=== PATIENT | male | born 1950 | race Caucasian/White ===

== ENCOUNTER 2016-11-05 16:24 | Inpatient (IN) | payer MEDICARE ==
[~2016-11-05] VITALS: Ht 170.2 cm; Wt 81.2 kg
[~2016-11-05 16:24] MED LIST: ALPR0.25 PO; AMBI10TA PO; CYCL1TAB29 PO; DULO1CAP3 PO; LOSA100T PO; METO25TA3 PO; NEUR300C PO
[2016-11-09] MEDS ORDERED: EMPA1TAB PO (09:03)
[2016-11-09] MEDS ORDERED: TRAD5TAB PO (09:03)
[2016-11-10 07:00] VITALS: BP 118/80; PULSE 93; RESP 20; TEMP 98.2; O2SAT 99
[2016-11-10] MEDS ORDERED: SODIUM CHLORID 0.9% 500 ML IV SCH (07:00)
[2016-11-10] MEDS ORDERED: LACTATED RINGER'S 1000 ML IV SCH (07:00)
[2016-11-10] MEDS ORDERED: METOPROLOL TARTRATE 25 MG TAB PO PRN (07:00)
[2016-11-10] MEDS ORDERED: INSULIN HUMAN REGULAR 1,000 UNITS/10 ML VIAL SQ PRN (07:00)
[2016-11-10] MEDS ORDERED: VANCOMYCIN HCL 1000 MG VIAL ONE (07:14)
[2016-11-10] MEDS ORDERED: GENTAMICIN SULFATE 80 MG/2 ML VIAL ONE (07:15)
[2016-11-10] MEDS ORDERED: GELFOAM SIZE 100 ONE (07:15)
[2016-11-10] MEDS ORDERED: ceFAZolin 2 GM PREMIX 50 ML ONE (07:15)
[2016-11-10] MEDS ORDERED: THROMBIN (TOPICAL) 5,000 UNIT VIAL ONE (07:15)
[2016-11-10] MEDS ORDERED: SODIUM CHLOR 0.9% 250 ML INJ 250 ML ONE (07:16)
[2016-11-10] MEDS ORDERED: HEPARIN SODIUM - SQ 10,000 UNITS/ML VIAL ONE (07:16)
[2016-11-10] MEDS ORDERED: ARTIFICIAL TEARS OPTH OINT 3.5 APPLIC/3.5 GM TUBO ONE (08:11)
[2016-11-10] MEDS ORDERED: MIDAZOLAM HCL 2 MG/2 ML VIAL ONE (08:11)
[2016-11-10] MEDS ORDERED: FAMOTIDINE 20 MG/2 ML VIAL ONE (08:11)
[2016-11-10] MEDS ORDERED: ACETAMINOPHEN 1000 MG/100 ML VIAL IV ONE (08:11)
[2016-11-10] MEDS ORDERED: fentaNYL CITRATE 250 MCG/5 ML AMP ONE ×2 (08:12→14:05)
[2016-11-10] MEDS ORDERED: SODIUM CHLORIDE 0.9% FLUSH 5 ML FLUSH IVF PRN (09:30)
[2016-11-10] MEDS ORDERED: MORPHINE SULFATE 4 MG/ML INJ IV PUSH PRN (09:30)
[2016-11-10] MEDS ORDERED: diphenhydrAMINE HCL 50 MG/ML VIAL IV PRN (09:45)
[2016-11-10] MEDS ORDERED: NALOXONE HCL 0.4 MG/ML AMP IV PRN (09:45)
[2016-11-10] MEDS ORDERED: LACTATED RINGER'S 1000 ML INJ 1,000 ML IV ONE (11:14)
[2016-11-10] MEDS ORDERED: ONDANSETRON HCL 4 MG/2 ML VIAL IV PUSH ONE (11:14)
[2016-11-10] MEDS ORDERED: PHENYLEPH/NS 1000 MCG/10 ML SYR IV ONE (11:14)
[2016-11-10] MEDS ORDERED: PROPOFOL 200 MG/20 ML AMP IV ONE (11:14)
[2016-11-10] MEDS ORDERED: ePHEDrine/NS 25 MG/5 ML SYR IV ONE (11:14)
[2016-11-10] MEDS ORDERED: NEOSTIGMINE 3 MG/3 ML SYR IV ONE (12:00)
[2016-11-10] MEDS ORDERED: BUPIVACAINE/EPINEPHRINE 0.5% PF 30 ML VIAL ONE (12:48)
[2016-11-10] MEDS: CYCLOBENZAPRINE HCL 10 MG TAB PO SCH ×2 (13:00→18:00)
--- NOTE | 2016-11-10 13:41 | PD.CONS ---
HPI Service [facility] Hospitalists Consult Requested By Primary Care Physician Eddi Bonds M.D. Diagnoses: Review of Systems Other lbp Past Family Social History Past Medical History htn dm 2 depression anxiety. mixed CTD afib appe prostate ca s/p radiation. Reported Medications Jardiance (Empagliflozin) 10 Mg Tab 10 Mg PO DAILY Tradjenta (Linagliptin) 5 Mg Tab 5 Mg PO DAILY Neurontin (Gabapentin) 300 Mg Cap 300 Mg PO BID Alprazolam 0.25 Mg Tab 0.25 Mg PO Q6H PRN Flexeril (Cyclobenzaprine HCl) 10 Mg Tab 10 Mg PO TID Metoprolol Tartrate 25 Mg Tab 25 Mg PO DAILY Losartan (Losartan Potassium) 100 Mg Tab 100 Mg PO DAILY Duloxetine DR (Duloxetine HCl) 60 Mg Capdr 60 Mg PO DAILY Ambien (Zolpidem Tartrate) 10 Mg Tab 10 Mg PO HS PRN Allergies: Coded Allergies: Demerol (Verified Allergy, Severe, Nausea/Vomiting, 11/09/16) Phenergan (Verified Allergy, Severe, Nausea/Vomiting, 11/09/16) Levaquin (Verified Allergy, Intermediate, 11/09/16) Hydrocodone (Verified Adverse Reaction, Severe, Nausea/Vomiting, 11/09/16) Family History nc Physical Exam Vital Signs heent neg heart reg lung cta abd s/nt ext no edema Vital Signs Date Time Temp Pulse Resp B/P Pulse Ox O2 Delivery O2 Flow Rate FiO2 11/10/16 07:00 98.2 93 20 118/80 99 Laboratory Laboratory Tests Test 11/10/16 06:55 Blood Type O POSITIVE Antibody Screen NEGATIVE Roamin Wen MD Nov 10, 2016 13:41
[2016-11-10] MEDS: NS + KCL 20 MEQ INJ 1,000 ML IV SCH ×2 (13:50→21:17)
[2016-11-10] MEDS ORDERED: *LABETALOL HCL 100 MG/20 ML VIAL PERIprocedural Use ONLY ONE (13:55)
[2016-11-10] MEDS ORDERED: DEXTROSE 50% IN WATER 50 ML VIAL(D50) IV PUSH PRN (14:00)
[2016-11-10] MEDS ORDERED: GLUCAGON 1 MG/ML VIAL OTHER PRN (14:00)
[2016-11-10] MEDS: PCA - TOTAL MG DILAUDID DELIVERED PER SHIFT SCH ×2 (14:00→21:18)
--- NOTE | 2016-11-10 14:11 | RADRPT ---
EXAM DATE/TIME: 11/10/2016 09:23 [place] COMPARISON: No previous studies available for comparison. INDICATIONS : Fusion L3,L4 and L4,L5 with screws and rods placement., MEDICAL HISTORY : None. SURGICAL HISTORY : None. ENCOUNTER: Initial ACUITY: 1 day PAIN SCORE: Non-responsive. LOCATION: Lumbar spine. CONCLUSION: Fluoroscopic images during placement of compression screws/rods from L3-L5. Intervertebral disc devic es are also noted. Harjinder Tim MD on November 10, 2016 at 14:08 Board Certified Radiologist. This report was verified electronically.
[2016-11-10] MEDS ORDERED: *ENALAPRILAT 1.25 MG/ML VIAL PERIprocedural Use ONLY ONE (14:34)
[2016-11-10] MEDS: HYDROmorphone HCL PCA 6 MG/30 ML IV SCH (14:41)
--- NOTE | 2016-11-10 15:07 | PD.OP ---
Operative Report Date of Surgery: Nov 10, 2016 Preoperative Diagnosis: lumbar spondylosis Postoperative Diagnosis: lumbar spondylosis Procedure: L3-4, L4-L5 laminectomy, interbody arthrodhesis using PEEK cage and autologous bone graft, L3-4, L4-L5 instrumental fixation using transpedicular screws and rods, L3-4, L4-L5 posterolateral fusion using autologous bone graft and demineralized bone matrix. Microsurgical dissection Anesthesia: general Surgeon: Mohan Campbell Territory Sales Consultant(s): pattie weir Operation and Findings: INDICATIONS FOR THE SURGICAL PROCEDURE Mr Boland is a 66 year-old male who presented with intractable mechanical back pain and adriana evidence of L4 and L5 lower extremity radiculopathy. He failed maximum nonsurgical management including multiple modalities of conservative treatment as well as pain management interventions by an interventional pain specialist. A surgical decompression and arthrodhesis were indicated as a last resort. The [id number] details of the procedure, indications, alternatives, risks and potential complications were fully discussed with the patient. The patient fully understood. All the questions were answered. No guarantees were given. He voiced requesting the procedure and provided informed consents. He was offered the alternative of delaying the procedure and continuing with nonsurgical management. DETAILS OF THE SURGICAL PROCEDURE Prior to the procedure, the procedure, risks, and potential complications revisited with the patient. Placement of electrodes for intraoperative neurophysiological monitoring was completed. The patient was taken to the operative room, and following induction of general anesthesia, endotracheal intubation was performed. A Mcneil catheter, bilateral YADIRA hose and sequential compression devices were placed and kept throughout the procedure. The patient was positioned prone, over a Jewel table over a bolsters. All pressure in the preoperative surgical holding room points were carefully padded with eggcrate and gel mattress. The eyes were tapped shut after ointment was applied by the anesthesiologist to prevent corneal abrasion. A Demond hugger was placed over the expossed lower body to maintain control of the core body temperature. The electrophysiological team placed the needles and electrodes in their proper location and baseline SSEP's and motor evoked potentials were registered. The entrance to each pedicles was marked using a C arm. The lumbar region was prepped and draped in the usual sterile fashion. The surgical procedure was performed in several steps as follow: SURGICAL APPROACH Once the patient was positioned, a localizing cross-table lateral and AP x-ray was performed with a C-arm. Two paramedian small incisions were outlined on the skin approximately 3cm from the midline. The skin incisions were made with a # 10 blade. Small bleeders were controlled with the cautery. The dissection was then carried out into deeper planes and through the thoracolumbar fascia with a Bovie. The intermuscular septum was identified and the muscles were blunted dissected along the septum. The facets and transverse process of L3-4, L4,5 were exposed and the proper anatomical landmarks were identidied. A microsurgical self-retaining retractor was placed on the incision, and a localizing lateralizing cross-table x-ray was performed with an instrument underneath a lamina of the lumbar spine. INSTRUMENTAL FIXATION At this point in the procedure, placement of bilateral transpedicular screws was necessary for stabilization of the spine. Initially, the entry point for the screw was selected anatomically at the junction of the facet, with the transverse process, and the pars interarticularis at L3-4, L4,5. This was started with a Giamshetti needle, followed by the use of K wire. A tap was used to create the threads for the screws. Finally bilateral transpedicular screws were carefully placed bilaterally at L3, L4, and L5 under fluoroscopic visualization. An appropriate purchase was achieved with all screws. The position of each screw was assessed anatomically with an AP, lateral, oblique Xrays. An intraoperative scan view of the spine was then performed using the iso -centric c- arm. Each screw was then assessed electrophysiologically stimulating each screw with a nerve stimulator. SURGICAL DECOMPRESSION There was significant mass effect with compression of the neural structures. In order to relieve neural compression, it was necessary to perform a decompressive laminectomy, with decompression of the spinal canal and bilateral lateral recesses. Note that the scope of such decompression was significantly more extensive than the minimal exposure necessary to perform an interbody fusion, as there was extreme facet arthropathy with severe degeneration of the disk spaces and stenosis cause by the hyperthrophic joint facets. At this point of the procedure the operative microscope was draped in the usual sterile fashion and brought to the field. The rest of the surgical procedure was performed using microdissection technique with the exception of the closure. Under the operating microscope, a decompressive laminectomy was carried out at L3-4, L4,5 as follow: The laminae, base of the spinous processes and facets were carefully drilled exposing the ligamentum flavum. The facets were abnormal with a wide disk bulge pressing the neural structures and exiting nerve roots. A near complete facetectomy was necessary resulting mechanical instability. The ligamentum flavum appeared hypertrophic, resulting on mass effect on the dorsal surface of the neural structures. The superior free border of the ligamentum flavum was elevated with a ligament dissector and the ligamentum flavum was removed with a 3 and 4 mm Kerrison forceps. The ligament was very adherent to the dural sac and during the dissection, ans extreme care was taken during the dissection. The exiting nerve roots were identified, and a wide foraminotomy was performed with a Kerrison in their trajectory towards the neural foramen. Epidural veins located laterally to the dural sac were coagulated with the bipolar cautery, and then incised using microscissors. Gentle medial retraction of the dural sac allowed me to expose the disc space for the discectomy. There was severe loss of disk space height INTERBODY ARTHRODHESIS In order to correct the narrowing of the disk space and maintain distraction of the space, and to achieve a solid interbody fusion, it was necessary the insertion of an interbody device into the disk space. Otherwise, the disk space would collapse, compromising the result of the surgical procedure. At this point of the procedure, the annulus fibrosus of the disk was carefully coagulated with a bipolar cautery and incised using an 11 bladed knife. Then, a microdiscectomy was carried out in a standard fashion using a combination of straight and up-biting pituitary forceps. A reverse angle curette was applied underneath the posterior longitudinal ligament, and used to push the disk fragments into the disk space, so they can be safely removed with a pituitary forceps. Once the discectomy was completed, it was necessary to decorticate the endplates, in order to eliminate the cartilaginous endplate and to expose healthy bone appropriate to perform the interbody fusion. The endplates at L3-4 , L4,5 were then thoroughly decorticated using increasing size bone negra and ring curets, eliminating the cartilaginous fragments from both, the superior and inferior endplates. A disk space distractor was applied to the pedicle screws and gentle distraction was applied. This maneuver was assisted by the use of a disk distractor. Increased motility was noted at the disk, which was consistent with instability due to facet arthropathy. Once a thorough preparation of the disk space was achieved, the disk space was irrigated with antibiotic solution, and the interbody fusion was performed by carefully impacting PPEK cages filled with autologous iliac crest bone graft. The use of several shoe impactors with different angulation, allowed me for an excellent, proper position of the interbody cages L3-4 and L4,5. A solid position of the cage with good purchase was achieved. The position of the cages were assessed anatomically with a probe and radiologically with the C-arm. POSTEROLATERAL FUSION The posterolateral fusion is a critical component to the procedure, to prevent future fatigue and failure of the instrumental fixation. Initially, the transverse processes of the vertebral bodies, lateral surface of the facets and the lateral gutters of the spine were carefully cleaned, eliminating all soft tissue and muscle attachments. The area was then irrigated with a large amount of antibiotic solution. Subsequently, the transverse processes, lateral surface of the facets, and lateral gutters of the spine were thoroughly decorticated using the TPS drill with a 5mm cutting luana, exposing cancellous bone, in preparation for the posterolateral fusion. The incision was again irrigated with antibiotic solution. Then, the posterolateral fusion was then performed by carefully packing the lateral gutters of the spine at L3-4, L4 ,5 with autologous bone graft combined with demineralized bone matrix. I packed as much bone as possible. COMPLETION OF THE INSTRUMENTATION AND CLOSURE The rods were brought to the field, applied to all the screws, and the screw caps were sequentially applied. Compression was performed between the pedicle screws, and final tightening of the screws was completed using a torque wrench. The incision was again thoroughly irrigated with several liters of antibiotic solution, and hemostasis secured with the bipolar cautery. A Valsalva Maneuver performed by the anesthesiologist failed to show any evidence of cerebrospinal fluid leak or bleeding. A 7 mm Jewel-Iverson drain was left in the epidural space and externalized through a separate stab incision. The incision was then closed in planes. 0 Vicryl was used in an interrupted fashion to close the thoracolumbar fascia and the superficial fascia. The subcutaneous tissue was then approximated using 3-0 Vicryl in an interrupted fashion. Special care was taken to avoid space. The skin was then closed with 4-0 Vicryl in a running, subcuticular fashion. Dermabond was applied to the skin. Each plane of closure was irrigated with antibiotic solution. At the end of the procedure the sponge, needle and instrument counts were all correct. Estimated blood loss was 250 cc. No blood transfusion was given. The entire procedure was performed using continuous electrophysiological monitoring of the somatosensorial evoked potentials and EMG. The patient received prophylactic antibiotics. The patient was then extubated and transferred to the recovery room in stable condition. Mohan Campbell MD Nov 10, 2016 15:07
[2016-11-10 16:00] VITALS: BP 135/82; PULSE 115; RESP 19; TEMP 95.9; O2SAT 95
[2016-11-10] MEDS: INSULIN ASPART SUPPLEMENTAL SCALE SQ SCH ×2 (16:00→21:18)
[2016-11-10] MEDS ORDERED: INSULIN ASPART SUPPLEMENTAL SCALE SQ SCH (16:00)
[2016-11-10] MEDS: ceFAZolin 2 GM PREMIX 50 ML IV SCH (18:00)
[2016-11-10] MEDS ORDERED: ceFAZolin 2 GM PREMIX 50 ML IV SCH (18:00)
[2016-11-10 20:30] VITALS: BP 160/95; PULSE 113; RESP 18; TEMP 96.6; O2SAT 97
[2016-11-10] MEDS: GABAPENTIN 300 MG CAP PO SCH (21:17)
[2016-11-11] VITALS (7 sets, daily range): BP systolic 131–160; BP diastolic 76–95; PULSE 98–117; RESP 16–18; TEMP 97–98.4; O2SAT 92–99
[2016-11-11] MEDS: ceFAZolin 2 GM PREMIX 50 ML IV SCH ×2 (02:26→08:59)
[2016-11-11] MEDS: PCA - TOTAL MG DILAUDID DELIVERED PER SHIFT SCH ×3 (06:00→21:43)
[2016-11-11] MEDS: INSULIN ASPART SUPPLEMENTAL SCALE SQ SCH ×4 (06:11→21:40)
[2016-11-11 07:22] LABS: BICARBONATE 25.4 MEQ/L (21.0-32.0); POTASSIUM 3.9 MEQ/L (3.5-5.1)
[2016-11-11 07:42] LABS: BASOPHIL % 0.4 % (0.0-2.0); HEMATOCRIT 29.6 % (39.0-51.0); HEMO FLAGS DIFF FINAL; LYMPH % 19.5 % (9.0-44.0); LYMPHOCYTE # 1.1 TH/MM3 (1.0-4.8); MEAN CELL VOLUME 87.4 FL (80.0-100.0); MEAN CORPUSCULAR HEMOGLOBIN 29.3 PG (27.0-34.0); MEAN CORPUSCULAR HGB CONC 33.6 % (32.0-36.0); MONO % 11.1 % (0.0-8.0); PLATELET COUNT 180 TH/MM3 (150-450); RED BLOOD COUNT 3.39 MIL/MM3 (4.50-5.90); RED CELL DISTRIBUTION WIDTH 18.6 % (11.6-17.2); WHITE BLOOD COUNT 5.8 TH/MM3 (4.0-11.0)
[2016-11-11] MEDS: GABAPENTIN 300 MG CAP PO SCH ×2 (08:55→21:43)
[2016-11-11] MEDS: METOPROLOL TARTRATE 25 MG TAB PO SCH (08:55)
[2016-11-11] MEDS: CYCLOBENZAPRINE HCL 10 MG TAB PO SCH ×3 (08:55→18:34)
[2016-11-11] MEDS: DULoxetine HCl DR 60 MG CAP PO SCH (08:56)
[2016-11-11] MEDS: LOSARTAN 50 MG TAB PO SCH (08:56)
[2016-11-11] MEDS: PANTOPRAZOLE SODIUM 40 MG VIAL IVP SCH (08:58)
[2016-11-11] MEDS: SODIUM CHLORIDE 0.9% FLUSH 5 ML FLUSH IVF SCH ×2 (08:59→21:43)
[2016-11-11] MEDS: NS + KCL 20 MEQ INJ 1,000 ML IV SCH (08:59)
[2016-11-11] MEDS ORDERED: TRADJENTA 5 MG PO SCH (09:00)
[2016-11-11] MEDS ORDERED: JARDIANCE 10 MG PO SCH (09:00)
--- NOTE | 2016-11-11 10:00 | HHI.PR ---
Subjective Remarks comfortable. used performance specialist x 2 Objective Vitals heent neg heart reg lung cta abd s/nt ext no edema jack Vital Signs Date Time Temp Pulse Resp B/P Pulse Ox O2 Delivery O2 Flow Rate FiO2 11/11/16 08:39 93 11/11/16 08:04 98.3 112 16 140/84 92 11/11/16 07:07 Nasal Cannula 2.00 11/11/16 03:45 97.0 106 18 149/85 96 11/11/16 00:15 97.6 108 18 131/76 95 11/10/16 20:30 96.6 113 18 160/95 97 11/10/16 19:30 Nasal Cannula 2.00 11/10/16 16:00 95.9 115 19 135/82 95 11/10/16 15:00 110 14 122/79 97 Nasal Cannula 3 11/10/16 14:45 107 14 119/76 96 Nasal Cannula 3 11/10/16 14:41 14 11/10/16 14:30 105 14 147/94 95 Nasal Cannula 3 11/10/16 14:15 117 14 156/101 97 Nasal Cannula 4 11/10/16 14:00 110 14 144/83 99 Nasal Cannula 4 11/10/16 13:48 97.6 117 14 146/103 99 T-Piece 6 11/10/16 11/10/16 11/11/16 15:00 23:00 07:00 Intake Total 3200 ml 2180 ml 1192 ml Output Total 510 ml 1205 ml 1585 ml Balance 2690 ml 975 ml -393 ml Intake Oral 480 ml 480 ml IV Total 1700 ml 712 ml Other 3200 ml Output Urine Total 1150 ml 1550 ml Drainage Total 10 ml 55 ml 35 ml Estimated Blood Loss 250 ml Other 250 ml # Bowel Movements 0 0 Result Diagram: 11/11/16 0630 11/11/16 0630 A/P Problem List: (1) Lumbar spondylosis Status: Acute Plan: s/p l4/5 lami/fusion 11/10 doing well postop PT dc jack dvt prophylaxis pain control. (2) DM (diabetes mellitus) Status: Chronic Plan: cont ssi hold home meds (3) HTN (hypertension) Status: Chronic Plan: cont home bp meds Romain Wen MD Nov 11, 2016 09:59
--- NOTE | 2016-11-11 10:20 | HHI.NSPN ---
(Mela Cerrato) Note Status Status: Progress Note (Mela Cerrato) Interval History Interval History Mr. Boland underwent L3-4, L4-L5 laminectomy, interbody arthrodhesis using PEEK cage and autologous bone graft, L3-4, L4-L5 instrumental fixation using transpedicular screws and rods, L3-4, L4-L5 posterolateral fusion using autologous bone graft and demineralized bone matrix on 11/10/16. His surgery went well without complications. 11/11: POD 1, doing well, using ELEMENTARY SCHOOL COUNSELOR intermittently and currently pain controlled laying in bed. PT in room to get pt OOB. He reports leg pain is improved, has residual paresthesias. He lives alone. (Mela Cerrato) Labs, Micro, & Vital Signs Results Date Time Temp Pulse Resp B/P Pulse Ox O2 Delivery O2 Flow Rate FiO2 11/11/16 08:39 93 11/11/16 08:04 98.3 112 16 140/84 92 11/11/16 07:07 Nasal Cannula 2.00 11/11/16 03:45 97.0 106 18 149/85 96 11/11/16 00:15 97.6 108 18 131/76 95 11/10/16 20:30 96.6 113 18 160/95 97 11/10/16 19:30 Nasal Cannula 2.00 11/10/16 16:00 95.9 115 19 135/82 95 11/10/16 15:00 110 14 122/79 97 Nasal Cannula 3 11/10/16 14:45 107 14 119/76 96 Nasal Cannula 3 11/10/16 14:41 14 11/10/16 14:30 105 14 147/94 95 Nasal Cannula 3 11/10/16 14:15 117 14 156/101 97 Nasal Cannula 4 11/10/16 14:00 110 14 144/83 99 Nasal Cannula 4 11/10/16 13:48 97.6 117 14 146/103 99 T-Piece 6 11/11/16 07:00 Intake Total 6572 ml Output Total 3300 ml Balance 3272 ml Constitutional Vital Signs Date Time Temp Pulse Resp B/P Pulse Ox O2 Delivery O2 Flow Rate FiO2 11/11/16 08:39 93 11/11/16 08:04 98.3 112 16 140/84 92 11/11/16 07:07 Nasal Cannula 2.00 11/11/16 03:45 97.0 106 18 149/85 96 11/11/16 00:15 97.6 108 18 131/76 95 11/10/16 20:30 96.6 113 18 160/95 97 11/10/16 19:30 Nasal Cannula 2.00 11/10/16 16:00 95.9 115 19 135/82 95 11/10/16 15:00 110 14 122/79 97 Nasal Cannula 3 11/10/16 14:45 107 14 119/76 96 Nasal Cannula 3 11/10/16 14:41 14 11/10/16 14:30 105 14 147/94 95 Nasal Cannula 3 11/10/16 14:15 117 14 156/101 97 Nasal Cannula 4 11/10/16 14:00 110 14 144/83 99 Nasal Cannula 4 11/10/16 13:48 97.6 117 14 146/103 99 T-Piece 6 11/11/16 07:00 Intake Total 6572 ml Output Total 3300 ml Balance 3272 ml (Mela Cerrato) Review of Systems/Exam Exam Mr. Boland is alert, in no apparent distress. Speech is fluent. Mentation intact. Incision is clean and dry, with dressing in place. DUDLEY drain intact with minimal serosanguineous drainage. Cranial nerve examination: pupils to be equal, round and reactive to light. Extra-ocular movements are intact. Facial motor are normal and symmetrical. Gross hearing appears intact. Muscle strength is 5/5 in the upper extremities. 5/5 to both iliopsoas, quadriceps, hamstrings, plantarflexion and dorsiflexion in lower extremities. Respiratory: clear Heart: NSR (Mela Cerrato) Medications Current Medications Current Medications Medications (Trade) Dose Ordered Sig/Ysabel Route PRN Reason Start Time Stop Time Status Last Admin Dose Admin Potassium Chloride/Sodium Chloride (NS + KCl 20 Meq Inj) 1,000 ml @ 100 mls/hr Q10H IV 11/10/16 12:30 11/11/16 08:59 IV Flush (NS Flush) 2 ml UNSCH PRN IVF FLUSH AFTER USING IV ACCESS 11/10/16 09:30 IV Flush (NS Flush) 2 ml BID IVF 11/11/16 09:00 11/11/16 08:59 Pantoprazole Sodium (Protonix Inj) 40 mg DAILY IVP 11/11/16 09:00 11/11/16 08:58 Morphine Sulfate (Morphine Inj) 2 mg Q2H PRN IV PUSH PAIN SCALE 1 TO 6 11/10/16 09:30 Morphine Sulfate (Morphine Inj) 4 mg Q2H PRN IV PUSH PAIN SCALE 7 TO 10 11/10/16 09:30 Acetaminophen (Tylenol) 650 mg Q4H PRN PO TEMPERATURE > 101.5 F 11/10/16 09:30 Alprazolam (Xanax) 0.25 mg Q6H PRN PO ANXIETY 11/10/16 09:30 Cyclobenzaprine HCl (Flexeril) 10 mg TID PO 11/10/16 13:00 11/11/16 08:55 Duloxetine HCl (Cymbalta Dr) 60 mg DAILY PO 11/11/16 09:00 11/11/16 08:56 Gabapentin (Neurontin) 300 mg BID PO 11/10/16 21:00 11/11/16 08:55 Losartan Potassium (Cozaar) 100 mg DAILY PO 11/11/16 09:00 11/11/16 08:56 Metoprolol Tartrate (Lopressor) 25 mg DAILY PO 11/11/16 09:00 11/11/16 08:55 Zolpidem Tartrate (Ambien) 10 mg HS PRN PO INSOMNIA 11/10/16 21:00 Patient Own Medication PT OWN MED: TRADJE... DAILY PO 11/11/16 09:00 Hold Naloxone HCl (Narcan Inj) 0.4 mg UNSCH PRN IV RESPIRATORY RATE LESS THAN 10 11/10/16 09:45 Diphenhydramine HCl (Benadryl Inj) 25 mg Q6H PRN IV ITCHING 11/10/16 09:45 Hydromorphone HCl (Dilaudid [employer] COUNSELOR Inj) 6 mg UNSCH IV 11/10/16 09:45 11/10/16 14:41 ELEMENTARY S[employer] COUNSELOR Dosage Infused (Pha) 1 Q8HR .XX 11/10/16 14:00 11/11/16 06:00 Dextrose (D50w (Vial) Inj) 25 ml UNSCH PRN IV PUSH HYPOGLYCEMIA-SEE COMMENTS 11/10/16 14:00 Glucagon 1 mg 1 mg UNSCH PRN OTHER HYPOGLYCEMIA-SEE COMMENTS 11/10/16 14:00 Cefazolin Sodium/ Dextrose (Ancef 2 Gm Premix) 50 ml @ 100 mls/hr Q8H IV 11/10/16 18:00 11/11/16 10:29 11/11/16 08:59 (Mela Cerrato) Medical Decision Making MDM Remarks 66 y/o male s/p L3-4, L4-L5 PLIF on 11/10/16, POD 1, doing well, clinically stable, surgical pain controlled (Mela Cerrato) Plan Plan Remarks cont ELEMENT[employer] SCHO[employer] COUNSELOR for now, dw pt if pain controlled may ask for oral pain medications instead cont IS every hour PT eval, OOB with [facility] medical mgt following, appreciate assistance SCDs and YADIRA for DVT prophylaxis case mgt HHC vs rehab as he has no support at home (Mela Cerrato) Attending Statement The exam, history, and the medical decision-making described in the above note were completed with the assistance of the mid-level provider. I reviewed and agree with the findings presented. I attest that I had a [id number] encounter with the patient on the same day, and personally performed and documented my assessment and findings in the medical record. (Mohan Campbell MD) Mela Cerrato Nov 11, 2016 10:20 Mohan Campbell MD Nov 14, 2016 18:11
[2016-11-11] MEDS: ALPRAZolam 0.25 MG TAB PO PRN (11:59)
[2016-11-11] MEDS: HYDROmorphone HCL PCA 6 MG/30 ML IV SCH (12:04)
[2016-11-11] MEDS ORDERED: cloNIDine HCL 0.1 MG TAB PO/NG PRN (12:15)
[2016-11-12 00:30] VITALS: BP 138/79; PULSE 117; RESP 17; TEMP 96.8; O2SAT 95
[2016-11-12 04:35] VITALS: BP 146/85; PULSE 120; RESP 17; TEMP 98.7; O2SAT 93
[2016-11-12] MEDS: PCA - TOTAL MG DILAUDID DELIVERED PER SHIFT SCH ×3 (06:00→22:00)
[2016-11-12] MEDS: INSULIN ASPART SUPPLEMENTAL SCALE SQ SCH ×4 (06:25→21:00)
[2016-11-12] MEDS: NS + KCL 20 MEQ INJ 1,000 ML IV SCH (06:25)
[2016-11-12] MEDS: ACETAMINOPHEN 325 MG TAB PO PRN (06:48)
[2016-11-12 08:00] VITALS: BP 146/94; PULSE 117; RESP 18; TEMP 97; O2SAT 96
[2016-11-12] MEDS: METOPROLOL TARTRATE 25 MG TAB PO SCH (09:19)
[2016-11-12] MEDS: DULoxetine HCl DR 60 MG CAP PO SCH (09:20)
[2016-11-12] MEDS: CYCLOBENZAPRINE HCL 10 MG TAB PO SCH ×3 (09:20→17:57)
[2016-11-12] MEDS: GABAPENTIN 300 MG CAP PO SCH ×2 (09:20→21:10)
[2016-11-12] MEDS: SODIUM CHLORIDE 0.9% FLUSH 5 ML FLUSH IVF SCH ×2 (09:20→21:10)
[2016-11-12] MEDS: PANTOPRAZOLE SODIUM 40 MG VIAL IVP SCH (09:20)
[2016-11-12] MEDS: LOSARTAN 50 MG TAB PO SCH (09:20)
[2016-11-12] MEDS: HYDROmorphone HCL PCA 6 MG/30 ML IV SCH (10:43)
[2016-11-12 12:00] VITALS: BP 125/78; PULSE 86; RESP 16; TEMP 95.9; O2SAT 98
[2016-11-12 16:00] VITALS: BP 124/80; PULSE 111; RESP 20; TEMP 97.1; O2SAT 97
[2016-11-12] MEDS: traMADol HCL 50 MG TAB PO PRN ×2 (18:32→23:08)
[2016-11-12 20:30] VITALS: BP 117/70; PULSE 110; RESP 17; TEMP 99.3; O2SAT 97
[2016-11-12] MEDS: ZOLPIDEM TARTRATE 10 MG TAB PO PRN (23:08)
[2016-11-13 00:05] VITALS: BP 158/90; PULSE 108; RESP 17; TEMP 98.5; O2SAT 93
[2016-11-13] MEDS: MORPHINE SULFATE 4 MG/ML INJ IV PUSH PRN ×2 (01:20→08:53)
[2016-11-13] MEDS: ALPRAZolam 0.25 MG TAB PO PRN (01:20)
[2016-11-13] MEDS: PCA - TOTAL MG DILAUDID DELIVERED PER SHIFT SCH ×3 (06:00→22:00)
[2016-11-13] MEDS: INSULIN ASPART SUPPLEMENTAL SCALE SQ SCH ×4 (06:20→20:32)
[2016-11-13] MEDS: traMADol HCL 50 MG TAB PO PRN ×3 (07:15→23:25)
[2016-11-13 08:00] VITALS: BP_SYST 142; BP_SYST 155; BP_DIAS 87; BP_DIAS 89; BP_DIAS 97; PULSE 102; PULSE 103; PULSE 116; RESP 16; RESP 18; TEMP 100.2; TEMP 98; TEMP 98.9; O2SAT 95; O2SAT 96
[2016-11-13] MEDS: GABAPENTIN 300 MG CAP PO SCH ×2 (08:54→20:31)
[2016-11-13] MEDS: METOPROLOL TARTRATE 25 MG TAB PO SCH (08:54)
[2016-11-13] MEDS: LOSARTAN 50 MG TAB PO SCH (08:54)
[2016-11-13] MEDS: PANTOPRAZOLE SODIUM 40 MG VIAL IVP SCH (08:54)
[2016-11-13] MEDS: DULoxetine HCl DR 60 MG CAP PO SCH (08:54)
[2016-11-13] MEDS: CYCLOBENZAPRINE HCL 10 MG TAB PO SCH ×3 (08:54→16:58)
[2016-11-13] MEDS: SODIUM CHLORIDE 0.9% FLUSH 5 ML FLUSH IVF SCH ×2 (08:55→20:31)
[2016-11-13] MEDS ORDERED: ULTR50TA5 PO (08:57)
--- NOTE | 2016-11-13 11:37 | HHI.NSPN ---
(Mela Cerrato) Note Status Status: Progress Note (Mela Cerrato) Interval History Interval History THIS NOTE IS FOR 11/12/16, PATIENT SEEN AND EXAMINED Mr. Boland underwent L3-4, L4-L5 laminectomy, interbody arthrodhesis using PEEK cage and autologous bone graft, L3-4, L4-L5 instrumental fixation using transpedicular screws and rods, L3-4, L4-L5 posterolateral fusion using autologous bone graft and demineralized bone matrix on 11/10/16. His surgery went well without complications. 11/11: POD 1, doing well, using RACING MECHANIC intermittently and currently pain controlled laying in bed. PT in room to get pt OOB. He reports leg pain is improved, has residual paresthesias. He lives alone. 11/12: POD 2, back a bit sore today, still requiring RACING MECHANIC at times, urinating well. (Mela Cerrato) Labs, Micro, & Vital Signs Results Date Time Temp Pulse Resp B/P Pulse Ox O2 Delivery O2 Flow Rate FiO2 11/13/16 08:00 98.9 102 18 155/89 96 11/13/16 06:00 18 11/13/16 00:05 98.5 108 17 158/90 93 11/12/16 22:00 5 11/12/16 20:30 99.3 110 17 117/70 97 11/12/16 20:00 97 Room Air 11/12/16 16:00 97.1 111 20 124/80 97 11/12/16 12:00 95.9 86 16 125/78 98 11/13/16 07:00 Intake Total 1200 ml Output Total 1130 ml Balance 70 ml Constitutional Vital Signs Date Time Temp Pulse Resp B/P Pulse Ox O2 Delivery O2 Flow Rate FiO2 11/13/16 08:00 98.9 102 18 155/89 96 11/13/16 06:00 18 11/13/16 00:05 98.5 108 17 158/90 93 11/12/16 22:00 5 11/12/16 20:30 99.3 110 17 117/70 97 11/12/16 20:00 97 Room Air 11/12/16 16:00 97.1 111 20 124/80 97 11/12/16 12:00 95.9 86 16 125/78 98 11/13/16 07:00 Intake Total 1200 ml Output Total 1130 ml Balance 70 ml (Mela Cerrato) Review of Systems/Exam Exam Mr. Boland is alert oriented x 3, sitting up in chair with TLSO. Speech is appropriate. Incision is clean and dry. DUDLEY drain intact with minimal serosanguineous drainage. Cranial nerve examination: pupils 4 mm equal, round and reactive to light. EOMs are intact. Facial motor are normal and symmetrical. Gross hearing appears intact. Muscle strength is 5/5 in the upper extremities. 5/5 to both iliopsoas, quadriceps, hamstrings, plantarflexion and dorsiflexion in lower extremities. Respiratory: clear Heart: NSR Abdomen: soft, nontender (Mela Cerrato) Medications Current Medications Current Medications Medications (Trade) Dose Ordered Sig/Ysabel Route PRN Reason Start Time Stop Time Status Last Admin Dose Admin Potassium Chloride/Sodium Chloride (NS + KCl 20 Meq Inj) 1,000 ml @ 0 mls/hr Q10H IV 11/10/16 12:30 11/12/16 06:25 IV Flush (NS Flush) 2 ml UNSCH PRN IVF FLUSH AFTER USING IV ACCESS 11/10/16 09:30 IV Flush (NS Flush) 2 ml BID IVF 11/11/16 09:00 11/13/16 08:55 Pantoprazole Sodium (Protonix Inj) 40 mg DAILY IVP 11/11/16 09:00 11/13/16 08:54 Morphine Sulfate (Morphine Inj) 2 mg Q2H PRN IV PUSH breakthrough pain 11/10/16 09:30 11/13/16 08:53 Acetaminophen (Tylenol) 650 mg Q4H PRN PO TEMPERATURE > 101.5 F 11/10/16 09:30 11/12/16 06:48 Alprazolam (Xanax) 0.25 mg Q6H PRN PO ANXIETY 11/10/16 09:30 11/13/16 01:20 Cyclobenzaprine HCl (Flexeril) 10 mg TID PO 11/10/16 13:00 11/13/16 08:54 Duloxetine HCl (Cymbalta Dr) 60 mg DAILY PO 11/11/16 09:00 11/13/16 08:54 Gabapentin (Neurontin) 300 mg BID PO 11/10/16 21:00 11/13/16 08:54 Losartan Potassium (Cozaar) 100 mg DAILY PO 11/11/16 09:00 11/13/16 08:54 Metoprolol Tartrate (Lopressor) 25 mg DAILY PO 11/11/16 09:00 11/13/16 08:54 Zolpidem Tartrate (Ambien) 10 mg HS PRN PO INSOMNIA 11/10/16 21:00 11/12/16 23:08 Patient Own Medication PT OWN MED: TRADJE... DAILY PO 11/11/16 09:00 Hold Naloxone HCl (Narcan Inj) 0.4 mg UNSCH PRN IV RESPIRATORY RATE LESS THAN 10 11/10/16 09:45 Diphenhydramine HCl (Benadryl Inj) 25 mg Q6H PRN IV ITCHING 11/10/16 09:45 Hydromorphone HCl (Dilaudid RACING MECHANIC Inj) 6 mg UNSCH IV 11/10/16 09:45 11/12/16 10:43 RACING MECHANIC Dosage Infused (Pha) 1 Q8HR .XX 11/10/16 14:00 11/13/16 06:00 Dextrose (D50w (Vial) Inj) 25 ml UNSCH PRN IV PUSH HYPOGLYCEMIA-SEE COMMENTS 11/10/16 14:00 Glucagon (Glucagon Inj) 1 mg UNSCH PRN OTHER HYPOGLYCEMIA-SEE COMMENTS 11/10/16 14:00 Clonidine (Catapres) 0.1 mg Q6H PRN PO/NG SYS BP GREATER THAN 170 MMHG 11/11/16 12:15 11/11/16 15:32 Tramadol HCl (Ultram) 50 mg Q4H PRN PO pain 11/12/16 11:30 11/13/16 07:15 (Mela Cerrato) Medical Decision Making MDM Remarks THIS NOTE IS FOR 11/12/16, PATIENT SEEN AND EXAMINED 66 y/o male s/p L3-4, L4-L5 PLIF on 11/10/16, POD 2, doing well, clinically stable, mod surgical pain (Mela Cerrato) Plan Plan Remarks THIS NOTE IS FOR 11/12/16, PATIENT SEEN AND EXAMINED cont RACING MECHANIC for now, Tramadol prn, cont IS every hour PT eval, OOB with TLSO medical mgt following, appreciate assistance SCDs and YADIRA for DVT prophylaxis anticipate dc rehab tomorrow (Mela Cerrato) Attending Statement The exam, history, and the medical decision-making described in the above note were completed with the assistance of the mid-level provider. I reviewed and agree with the findings presented. I attest that I had a [id number] encounter with the patient on the same day, and personally performed and documented my assessment and findings in the medical record. (Mohan Campbell MD) Mela Cerrato Nov 13, 2016 11:37 Mohan Campbell MD Nov 14, 2016 19:20
--- NOTE | 2016-11-13 11:41 | HHI.NSPN ---
(Mela Cerrato) Note Status Status: Progress Note (Mela Cerrato) Interval History Interval History Mr. Boland underwent L3-4, L4-L5 laminectomy, interbody arthrodhesis using PEEK cage and autologous bone graft, L3-4, L4-L5 instrumental fixation using transpedicular screws and rods, L3-4, L4-L5 posterolateral fusion using autologous bone graft and demineralized bone matrix on 11/10/16. His surgery went well without complications. 11/11: POD 1, doing well, using CHILD MONITOR intermittently and currently pain controlled laying in bed. PT in room to get pt OOB. He reports leg pain is improved, has residual paresthesias. He lives alone. 11/12: POD 2, back a bit sore today, still requiring CHILD MONITOR at times, urinating well. 11/13: POD 3, doing better, ready for rehab (Mela Cerrato) Labs, Micro, & Vital Signs Results Date Time Temp Pulse Resp B/P Pulse Ox O2 Delivery O2 Flow Rate FiO2 11/13/16 08:00 98.9 102 18 155/89 96 11/13/16 06:00 18 11/13/16 00:05 98.5 108 17 158/90 93 11/12/16 22:00 5 11/12/16 20:30 99.3 110 17 117/70 97 11/12/16 20:00 97 Room Air 11/12/16 16:00 97.1 111 20 124/80 97 11/12/16 12:00 95.9 86 16 125/78 98 11/13/16 07:00 Intake Total 1200 ml Output Total 1130 ml Balance 70 ml Constitutional Vital Signs Date Time Temp Pulse Resp B/P Pulse Ox O2 Delivery O2 Flow Rate FiO2 11/13/16 08:00 98.9 102 18 155/89 96 11/13/16 06:00 18 11/13/16 00:05 98.5 108 17 158/90 93 11/12/16 22:00 5 11/12/16 20:30 99.3 110 17 117/70 97 11/12/16 20:00 97 Room Air 11/12/16 16:00 97.1 111 20 124/80 97 11/12/16 12:00 95.9 86 16 125/78 98 11/13/16 07:00 Intake Total 1200 ml Output Total 1130 ml Balance 70 ml (Mela Cerrato) Review of Systems/Exam Exam Mr. Boland is alert oriented x 3, comfortable in bed, no apparent distress. Speech is appropriate. Incision is clean and dry. DUDLEY drain minimal serosanguineous drainage. Cranial nerve examination: pupils 4 mm equal, round and reactive to light. EOMs are intact. Facial motor are normal and symmetrical. Muscle strength is 5/5 in the upper extremities. 5/5 to both iliopsoas, quadriceps, hamstrings, plantarflexion and dorsiflexion in lower extremities. Respiratory: clear Heart: NSR Abdomen: soft, nontender SkIn: no cyanosis or erythema (Mela Cerrato) Medications Current Medications Current Medications Medications (Trade) Dose Ordered Sig/Ysabel Route PRN Reason Start Time Stop Time Status Last Admin Dose Admin Potassium Chloride/Sodium Chloride (NS + KCl 20 Meq Inj) 1,000 ml @ 0 mls/hr Q10H IV 11/10/16 12:30 11/12/16 06:25 IV Flush (NS Flush) 2 ml UNSCH PRN IVF FLUSH AFTER USING IV ACCESS 11/10/16 09:30 IV Flush (NS Flush) 2 ml BID IVF 11/11/16 09:00 11/13/16 08:55 Pantoprazole Sodium (Protonix Inj) 40 mg DAILY IVP 11/11/16 09:00 11/13/16 08:54 Morphine Sulfate (Morphine Inj) 2 mg Q2H PRN IV PUSH breakthrough pain 11/10/16 09:30 11/13/16 08:53 Acetaminophen (Tylenol) 650 mg Q4H PRN PO TEMPERATURE > 101.5 F 11/10/16 09:30 11/12/16 06:48 Alprazolam (Xanax) 0.25 mg Q6H PRN PO ANXIETY 11/10/16 09:30 11/13/16 01:20 Cyclobenzaprine HCl (Flexeril) 10 mg TID PO 11/10/16 13:00 11/13/16 08:54 Duloxetine HCl (Cymbalta Dr) 60 mg DAILY PO 11/11/16 09:00 11/13/16 08:54 Gabapentin (Neurontin) 300 mg BID PO 11/10/16 21:00 11/13/16 08:54 Losartan Potassium (Cozaar) 100 mg DAILY PO 11/11/16 09:00 11/13/16 08:54 Metoprolol Tartrate (Lopressor) 25 mg DAILY PO 11/11/16 09:00 11/13/16 08:54 Zolpidem Tartrate (Ambien) 10 mg HS PRN PO INSOMNIA 11/10/16 21:00 11/12/16 23:08 Patient Own Medication PT OWN MED: TRADJE... DAILY PO 11/11/16 09:00 Hold Naloxone HCl (Narcan Inj) 0.4 mg UNSCH PRN IV RESPIRATORY RATE LESS THAN 10 11/10/16 09:45 Diphenhydramine HCl (Benadryl Inj) 25 mg Q6H PRN IV ITCHING 11/10/16 09:45 Hydromorphone HCl (Dilaudid CHILD MONITOR Inj) 6 mg UNSCH IV 11/10/16 09:45 11/12/16 10:43 CHILD MONITOR Dosage Infused (Pha) 1 Q8HR .XX 11/10/16 14:00 11/13/16 06:00 Dextrose (D50w (Vial) Inj) 25 ml UNSCH PRN IV PUSH HYPOGLYCEMIA-SEE COMMENTS 11/10/16 14:00 Glucagon (Glucagon Inj) 1 mg UNSCH PRN OTHER HYPOGLYCEMIA-SEE COMMENTS 11/10/16 14:00 Clonidine (Catapres) 0.1 mg Q6H PRN PO/NG SYS BP GREATER THAN 170 MMHG 11/11/16 12:15 11/11/16 15:32 Tramadol HCl (Ultram) 50 mg Q4H PRN PO pain 11/12/16 11:30 11/13/16 07:15 (Mela Cerrato) Medical Decision Making MDM Remarks 66 y/o male s/p L3-4, L4-L5 PLIF on 11/10/16, POD 3, doing well, clinically stable, mod surgical pain controlled, ambulating (Mela Cerrato) Plan Plan Remarks CHILD MONITOR dc'ed, cont Tramadol prn, cont IS every hour TLSO when out of bed SCDs and YADIRA for DVT prophylaxis dc DUDLEY dc to rehab activity restrictions, wound care, and signs and symptoms to watch for were fully discussed with the patient. (Mela Cerrato) Attending Statement The exam, history, and the medical decision-making described in the above note were completed with the assistance of the mid-level provider. I reviewed and agree with the findings presented. I attest that I had a [id number] encounter with the patient on the same day, and personally performed and documented my assessment and findings in the medical record. (Mohan Campbell MD) Mela Cerrato Nov 13, 2016 11:41 Mohan Campbell MD Nov 14, 2016 19:20
--- NOTE | 2016-11-13 11:43 | HHI.DCPOC ---
Discharge Care Plan Diagnosis: (1) Status post lumbar spinal fusion Goals to Promote Your Health * To prevent worsening of your condition and complications * To maintain your health at the optimal level Directions to Meet Your Goals Take your medications as prescribed Follow your dietary instruction Follow activity as directed Keep your appointments as scheduled Take your immunizations and boosters as scheduled If your symptoms worsen call your PCP, if no PCP go to Urgent Care Center or Emergency Room Smoking is Dangerous to Your Health. Avoid second hand smoke Call the 24-hour hour crisis hotline for domestic abuse at Mela Cerrato Nov 13, 2016 11:43
[2016-11-13] MEDS ORDERED: WALKER WHEELS/F1 MIS (11:45)
[2016-11-13 12:00] VITALS: BP 146/91; PULSE 89; RESP 16; TEMP 98.8; O2SAT 96
[2016-11-13] MEDS ORDERED: ALPR0.25 PO (14:07)
[2016-11-13] MEDS ORDERED: AMBI10TA PO (14:07)
[2016-11-13 14:20] VITALS: O2SAT 93; O2SAT 96
[2016-11-13 18:10] VITALS: O2SAT 96
[2016-11-13] MEDS ORDERED: LACTULOSE SYRUP 20 GM/30 ML CUP PO ONE (18:15)
[2016-11-13 20:15] VITALS: BP 139/93; PULSE 102; RESP 16; TEMP 98.9; O2SAT 97
[2016-11-13] MEDS: ZOLPIDEM TARTRATE 10 MG TAB PO PRN (23:24)
[2016-11-14 00:09] VITALS: BP 148/95; PULSE 111; RESP 20; TEMP 96.9; O2SAT 98
[2016-11-14] MEDS: PCA - TOTAL MG DILAUDID DELIVERED PER SHIFT SCH ×2 (06:00→12:31)
[2016-11-14] MEDS: traMADol HCL 50 MG TAB PO PRN ×2 (06:18→17:15)
[2016-11-14] MEDS: INSULIN ASPART SUPPLEMENTAL SCALE SQ SCH ×3 (07:00→17:14)
[2016-11-14 08:00] VITALS: BP 135/89; PULSE 118; RESP 19; TEMP 97.6; O2SAT 95
[2016-11-14] MEDS: GABAPENTIN 300 MG CAP PO SCH (09:00)
[2016-11-14] MEDS ORDERED: LACTULOSE SYRUP 20 GM/30 ML CUP PO SCH (09:00)
[2016-11-14] MEDS ORDERED: DOCUSATE SODIUM 50 MG/SENNA 8.6 MG TAB PO SCH (09:00)
[2016-11-14] MEDS: PANTOPRAZOLE SODIUM 40 MG VIAL IVP SCH (09:22)
[2016-11-14] MEDS: LOSARTAN 50 MG TAB PO SCH (09:23)
[2016-11-14] MEDS: METOPROLOL TARTRATE 25 MG TAB PO SCH (09:23)
[2016-11-14] MEDS: CYCLOBENZAPRINE HCL 10 MG TAB PO SCH ×3 (09:23→17:15)
[2016-11-14] MEDS: DULoxetine HCl DR 60 MG CAP PO SCH (09:23)
[2016-11-14] MEDS: SODIUM CHLORIDE 0.9% FLUSH 5 ML FLUSH IVF SCH (09:24)
[2016-11-14 09:56] VITALS: O2SAT 96
--- NOTE | 2016-11-14 10:24 | HHI.NSPN ---
(Mela Cerrato) Note Status Status: Progress Note (Mela Cerrato) Interval History Interval History Mr. Boland underwent L3-4, L4-L5 laminectomy, interbody arthrodhesis using PEEK cage and autologous bone graft, L3-4, L4-L5 instrumental fixation using transpedicular screws and rods, L3-4, L4-L5 posterolateral fusion using autologous bone graft and demineralized bone matrix on 11/10/16. His surgery went well without complications. 11/11: POD 1, doing well, using DIRECTOR OF INFORMATICS intermittently and currently pain controlled laying in bed. PT in room to get pt OOB. He reports leg pain is improved, has residual paresthesias. He lives alone. 11/12: POD 2, back a bit sore today, still requiring DIRECTOR OF INFORMATICS at times, urinating well. 11/13: POD 3, doing better, ready for rehab 11/14: POD 4, constipated, drank lactulose earlier this am. (Mela Cerrato) Labs, Micro, & Vital Signs Results Date Time Temp Pulse Resp B/P Pulse Ox O2 Delivery O2 Flow Rate FiO2 11/14/16 09:56 96 21 11/14/16 08:00 97.6 118 19 135/89 95 11/14/16 00:09 96.9 111 20 148/95 98 11/13/16 20:15 98.9 102 16 139/93 97 11/13/16 20:00 97 Room Air 11/13/16 18:10 96 21 11/13/16 14:20 96 11/13/16 12:00 98.8 89 16 146/91 96 11/14/16 07:00 Intake Total 1200 ml Output Total 415 ml Balance 785 ml Constitutional Vital Signs Date Time Temp Pulse Resp B/P Pulse Ox O2 Delivery O2 Flow Rate FiO2 11/14/16 09:56 96 21 11/14/16 08:00 97.6 118 19 135/89 95 11/14/16 00:09 96.9 111 20 148/95 98 11/13/16 20:15 98.9 102 16 139/93 97 11/13/16 20:00 97 Room Air 11/13/16 18:10 96 21 11/13/16 14:20 96 11/13/16 12:00 98.8 89 16 146/91 96 11/14/16 07:00 Intake Total 1200 ml Output Total 415 ml Balance 785 ml (Mela Cerrato) Review of Systems/Exam Exam Mr. Boland is alert oriented x 3, comfortable in bed, no apparent distress. Speech is appropriate. Incision is clean and dry. DUDLEY drain minimal serosanguineous drainage. Cranial nerve examination: pupils 4 mm equal, round and reactive to light. EOMs are intact. Facial motor are normal and symmetrical. Muscle strength is 5/5 in the upper extremities. 5/5 to both iliopsoas, quadriceps, hamstrings, plantarflexion and dorsiflexion in lower extremities. Respiratory: clear Heart: NSR Abdomen: soft, nontender SkIn: no cyanosis or erythema (Mela Cerrato) Medications Current Medications Current Medications Medications (Trade) Dose Ordered Sig/Ysabel Route PRN Reason Start Time Stop Time Status Last Admin Dose Admin Potassium Chloride/Sodium Chloride (NS + KCl 20 Meq Inj) 1,000 ml @ 0 mls/hr Q10H IV 11/10/16 12:30 11/12/16 06:25 IV Flush (NS Flush) 2 ml UNSCH PRN IVF FLUSH AFTER USING IV ACCESS 11/10/16 09:30 IV Flush (NS Flush) 2 ml BID IVF 11/11/16 09:00 11/14/16 09:24 Pantoprazole Sodium (Protonix Inj) 40 mg DAILY IVP 11/11/16 09:00 11/14/16 09:22 Morphine Sulfate (Morphine Inj) 2 mg Q2H PRN IV PUSH breakthrough pain 11/10/16 09:30 11/13/16 08:53 Acetaminophen (Tylenol) 650 mg Q4H PRN PO TEMPERATURE > 101.5 F 11/10/16 09:30 11/12/16 06:48 Alprazolam (Xanax) 0.25 mg Q6H PRN PO ANXIETY 11/10/16 09:30 11/13/16 01:20 Cyclobenzaprine HCl (Flexeril) 10 mg TID PO 11/10/16 13:00 11/14/16 09:23 Duloxetine HCl (Cymbalta Dr) 60 mg DAILY PO 11/11/16 09:00 11/14/16 09:23 Gabapentin (Neurontin) 300 mg BID PO 11/10/16 21:00 11/14/16 09:00 Losartan Potassium (Cozaar) 100 mg DAILY PO 11/11/16 09:00 11/14/16 09:23 Metoprolol Tartrate (Lopressor) 25 mg DAILY PO 11/11/16 09:00 11/14/16 09:23 Zolpidem Tartrate (Ambien) 10 mg HS PRN PO INSOMNIA 11/10/16 21:00 11/13/16 23:24 Patient Own Medication PT OWN MED: TRADJE... DAILY PO 11/11/16 09:00 Hold Naloxone HCl (Narcan Inj) 0.4 mg UNSCH PRN IV RESPIRATORY RATE LESS THAN 10 11/10/16 09:45 Diphenhydramine HCl (Benadryl Inj) 25 mg Q6H PRN IV ITCHING 11/10/16 09:45 Hydromorphone HCl (Dilaudid DIRECTOR OF INFORMATICS Inj) 6 mg UNSCH IV 11/10/16 09:45 11/12/16 10:43 DIRECTOR OF INFORMATICS Dosage Infused (Pha) 1 Q8HR .XX 11/10/16 14:00 11/13/16 06:00 Dextrose (D50w (Vial) Inj) 25 ml UNSCH PRN IV PUSH HYPOGLYCEMIA-SEE COMMENTS 11/10/16 14:00 Glucagon (Glucagon Inj) 1 mg UNSCH PRN OTHER HYPOGLYCEMIA-SEE COMMENTS 11/10/16 14:00 Clonidine (Catapres) 0.1 mg Q6H PRN PO/NG SYS BP GREATER THAN 170 MMHG 11/11/16 12:15 11/11/16 15:32 Tramadol HCl (Ultram) 50 mg Q4H PRN PO pain 11/12/16 11:30 11/14/16 06:18 Lactulose (Lactulose Liq) 30 ml DAILY PO 11/14/16 09:00 11/14/16 09:22 Senna/Docusate Sodium (Rolanda-Colace) 2 tab DAILY PO 11/14/16 09:00 11/14/16 09:23 (Mela Cerrato) Medical Decision Making MDM Remarks 66 y/o male s/p L3-4, L4-L5 PLIF on 11/10/16, POD 4, doing well, clinically stable, mod surgical pain controlled, ambulating, constipated (Mela Cerrato) Plan Plan Remarks cont Tramadol prn cont IS every hour TLSO when out of bed SCDs and YADIRA for DVT prophylaxis activity restrictions, wound care, and signs and symptoms to watch for were fully discussed with the patient given lactulose, rectal suppository, dc rehab once he moves bowels (Mela Cerrato) Attending Statement The exam, history, and the medical decision-making described in the above note were completed with the assistance of the mid-level provider. I reviewed and agree with the findings presented. I attest that I had a [id number] encounter with the patient on the same day, and personally performed and documented my assessment and findings in the medical record. (Mohan Campbell MD) Mela Cerrato Nov 14, 2016 10:24 Mohan Campbell MD Nov 14, 2016 19:21
[2016-11-14] MEDS: ACETAMINOPHEN 325 MG TAB PO PRN (10:52)
[2016-11-14] MEDS ORDERED: BISACODYL 10 MG SUPP RECTAL ONE (11:00)
[2016-11-14 12:00] VITALS: BP 140/85; PULSE 105; RESP 19; TEMP 96.1; O2SAT 99
[2016-11-14 17:43] VITALS: BP 112/72; PULSE 94; RESP 18; TEMP 97.2; O2SAT 98
[2016-12-15] MEDS ORDERED: METH750T PO (10:15)
--- NOTE | 2016-12-31 13:01 | HHI.DS ---
Discharge Summary Admission Date Nov 10, 2016 at 06:17 Discharge Date: Nov 14, 2016 Admitting Diagnosis s/p lumbar fusion (1) Lumbar spondylosis ICD Code: M47.816 (2) DM (diabetes mellitus) ICD Code: E11.9 (3) HTN (hypertension) ICD Code: I10 Imaging Last Impressions Lumbar Spine X-Ray 11/10/16 0000 Signed Impressions: Service Date/Time: Thursday, November 10, 2016 09:23 - CONCLUSION: Fluoroscopic images during placement of compression screws/rods from L3-L5. Intervertebral disc devices are also noted. Harjinder Tim MD Hospital Course Mr. Boland underwent a L3-4, L4-L5 laminectomy, interbody arthrodhesis using PEEK cage and autologous bone graft, L3-4, L4-L5 instrumental fixation using transpedicular screws and rods, L3-4, L4-L5 posterolateral fusion using autologous bone graft and demineralized bone matrix. Microsurgical dissection on Nov 10, 2016. His surgical pain was managed with a RN TRANSFER pump that was subsequently weaned off. His surgical pain improved and tolerable on oral pain medications. He was discharged in stable conditions. Wound care and activity restrictions were discussed. Pt Condition on Discharge: Stable Discharge Disposition: Discharge to SNF Discharge Instructions DIET: Follow Instructions for: Heart Healthy Diet ACTIVITIES You can perform: Weight Bearing As Kelle ADDITIONAL Activity Instructio: Avoid strenuous activities, heavy lifting, overhead activities, repetitive bending, twisting, pushing, pulling or any activities which might result in stress over the spine. Avoid situtation that will put at risk for falls. Use assistive device as needed for walking. Wear TLSO/lumbar brace when out of bed. Follow up Referrals: Appointment for Follow Up with Mohan Campbell MD SNF/[facility]/ with [facility] New Medications: Walker with Front Wheels (Walker with Front Wheels) 1 Mis Mis 1 EA .ROUTE DIRECTED #1 Ref 0 EA Zolpidem (Ambien) 10 Mg Tab 10 MG PO HS PRN INSOMNIA #15 Ref 0 TAB Tramadol (Ultram) 50 Mg Tab 50 MG PO Q8HR PRN pain #90 Ref 1 TAB Continued Medications: Alprazolam (Alprazolam) 0.25 Mg Tab 0.25 MG PO Q6H PRN ANXIETY #20 Ref 2 TAB (This prescription has been renewed) Duloxetine DR (Duloxetine DR) 60 Mg Capdr 60 MG PO DAILY #30 Ref 0 CAP Empagliflozin (Jardiance) 10 Mg Tab 10 MG PO DAILY Blood Sugar Management #30 Ref 0 TAB Gabapentin (Neurontin) 300 Mg Cap 300 MG PO BID #60 Ref 0 CAP Linagliptin (Tradjenta) 5 Mg Tab 5 MG PO DAILY Blood Sugar Management #30 Ref 0 TAB Losartan (Losartan) 100 Mg Tab 100 MG PO DAILY Blood Pressure Management #30 Ref 0 TAB Metoprolol Tartrate (Metoprolol Tartrate) 25 Mg Tab 25 MG PO DAILY #30 Ref 0 TAB Zolpidem (Ambien) 10 Mg Tab 10 MG PO HS PRN INSOMNIA Ref 0 TAB Mela Cerrato Dec 31, 2016 13:01
[2017-03-01] MEDS ORDERED: MELO-1 PO (16:03)
== END 2016-11-14 18:53 | DRG 460 ==
LOC: HSDI 11-10 06:17 → N06A 11-10 15:29
PROVIDERS: ADMIT Neurological Surgery; ATTEND Neurological Surgery
PROC: 4A11X4G Monitoring of Peripheral Nervous Electrical Activity, Intraoperative, External Approach (ICD-10-PCS; 2016-11-10)
PROC: 0SG10AJ Fusion of 2 or more Lumbar Vertebral Joints with Interbody Fusion Device, Posterior Approach, Anterior Column, Open Approach (ICD-10-PCS; principal; 2016-11-10 08:36)
DX: M47.26 Other spondylosis with radiculopathy, lumbar region (principal); I48.91 Unspecified atrial fibrillation; I10 Essential (primary) hypertension; E11.9 Type 2 diabetes mellitus without complications; K59.00 Constipation, unspecified; F32.9 Major depressive disorder, single episode, unspecified; F41.9 Anxiety disorder, unspecified; Z85.46 Personal history of malignant neoplasm of prostate; Z92.3 Personal history of irradiation; Z79.84 Long term (current) use of oral hypoglycemic drugs; Z88.1 Allergy status to other antibiotic agents; Z88.5 Allergy status to narcotic agent; Z88.8 Allergy status to other drugs, medicaments and biological substances
CPT/HCPCS: 72100; 76000; 80048; 82948; 85025; 86850; 86900; 86901; 94150; C1713; C9113; J0131; J0690; J1170; J1580; J1644; J1815; J2250; J2270; J2370; J2405; J2710; J3010; J3370; J3480; J7050; J7120; L0200; L0484

== ENCOUNTER 2017-03-11 16:07 | Inpatient (IN) | payer MEDICARE ==
[~2017-03-11] VITALS: Ht 170.2 cm; Wt 78.0 kg
[~2017-03-11 16:07] MED LIST changes: -CYCL1TAB29 PO; +EMPA1TAB PO; +MELO-1 PO; +METH750T PO; +TRAD5TAB PO; +ULTR50TA5 PO; +WALKER WHEELS/F1 MIS
[2017-03-26] MEDS ORDERED: MULT-267 PO (09:42)
[2017-03-26] MEDS ORDERED: PRIL20TA2 PO (10:09)
[2017-04-07] MEDS ORDERED: DEXAMETHASONE SOD PHOS 20 MG/5 ML VIAL ONE (05:48)
[2017-04-07] MEDS ORDERED: VANCOMYCIN HCL 1000 MG VIAL ONE (05:49)
[2017-04-07] MEDS ORDERED: ceFAZolin 2 GM PREMIX 50 ML ONE (05:49)
[2017-04-07] MEDS ORDERED: LACTATED RINGER'S 1000 ML INJ 1,000 ML ONE (05:49)
[2017-04-07] MEDS ORDERED: SODIUM CHLOR 0.9% 250 ML INJ 250 ML ONE (05:49)
[2017-04-07 05:59] VITALS: BP 100/69; PULSE 87; RESP 20; TEMP 98.4; O2SAT 96
[2017-04-07] MEDS ORDERED: DEXAMETHASONE SOD PHOS 20 MG/5 ML VIAL IV SCH (06:30)
[2017-04-07] MEDS ORDERED: GENTAMICIN SULFATE 80 MG/2 ML VIAL ONE (06:43)
[2017-04-07] MEDS ORDERED: CHLORHEXIDINE GLUCONATE 2 % 1 PACK (2 CLOTHS) TOPICAL PRN (06:45)
[2017-04-07] MEDS ORDERED: TRANEXAMIC ACID INJ 780 MG in SODIUM CHLORIDE 0.9% INJ 100 ML IV SCH ×2 (06:45→10:00)
[2017-04-07] MEDS ORDERED: LACTATED RINGER'S 1000 ML IV PRN (06:45)
[2017-04-07] MEDS ORDERED: INSULIN HUMAN REGULAR 1,000 UNITS/10 ML VIAL SQ PRN (06:45)
[2017-04-07] MEDS ORDERED: POVIDONE IODINE 5% (ANTISEPSIS KIT) 4 APPLICATIONS EACH NARE PRN (06:45)
[2017-04-07] MEDS ORDERED: METOPROLOL TARTRATE 25 MG TAB PO PRN (06:45)
[2017-04-07] MEDS ORDERED: SODIUM CHLORID 0.9% 500 ML IV PRN (06:45)
[2017-04-07] MEDS ORDERED: FAMOTIDINE 20 MG/2 ML VIAL ONE (06:46)
[2017-04-07] MEDS ORDERED: MIDAZOLAM HCL 2 MG/2 ML VIAL ONE (06:46)
--- NOTE | 2017-04-07 06:53 | HHI.DCPOC ---
Discharge Care Plan Diagnosis: (1) Osteoarthritis of left hip (2) Status post total hip replacement, left Your Health Problems Are: Difficulty with ADL Goals to Promote Your Health * To prevent worsening of your condition and complications * To maintain your health at the optimal level Directions to Meet Your Goals Take your medications as prescribed Follow your dietary instruction Follow activity as directed Keep your appointments as scheduled Take your immunizations and boosters as scheduled If your symptoms worsen call your PCP, if no PCP go to Urgent Care Center or Emergency Room Smoking is Dangerous to Your Health. Avoid second hand smoke Call the 24-hour hour crisis hotline for domestic abuse at Nicho Henson Apr 07, 2017 06:53
--- NOTE | 2017-04-07 06:54 | HHI.FF ---
Face to Face Verification Diagnosis: (1) Osteoarthritis of left hip (2) Status post total hip replacement, left Physical Therapy Gait training, Transfer training, bed to chair Hip: Total hip Left LE Weight Bearing: WB as tolerated Left LE Range of Motion: Active ROM Nursing Nursing: Lauren teaching, Dressing changes Dressing Changes: Daily dressing change I have seen patient Ba Boland on 04/07/17. My clinical findings support the need for the requested home health care services because: Limited ability to care for self High risk of falls I certify that my clinical findings support that this patient is homebound because: Post-op weakness Unsteady gait/balance Nicho Henson Apr 07, 2017 06:54
[2017-04-07] MEDS ORDERED: WALKER WHEELS/F1 MIS (06:55)
[2017-04-07] MEDS ORDERED: COMMODE 3-IN-11 MIS (06:55)
[2017-04-07] MEDS ORDERED: BUPIVACAINE LIPOSO PF 1.3% INJ 20 ML in SODIUM CHLORIDE 0.9% INJ 40 ML P-ARTICULR SCH (07:00)
[2017-04-07] MEDS ORDERED: ceFAZolin 2 GM PREMIX 50 ML IV SCH (07:00)
[2017-04-07] MEDS ORDERED: VANCOMYCIN 1000 MG/NS 250 ML (for <70 kg) IV SCH ×2 (07:00)
[2017-04-07] MEDS ORDERED: POVIDONE IODINE 7.5% SCRUB 118 ML BOTTLE TOPICAL SCH (07:00)
[2017-04-07] MEDS ORDERED: GENTAMICIN SULFATE 80 MG/2 ML VIAL IRRIGATION ONE (07:37)
[2017-04-07] MEDS ORDERED: BUPIVACAINE LIPOSOME PF 1.3% 20 ML VIAL P-ARTICULR ONE (07:37)
[2017-04-07] MEDS ORDERED: PROPOFOL 200 MG/20 ML AMP IV ONE (08:35)
[2017-04-07] MEDS ORDERED: PHENYLEPH/NS 1000 MCG/10 ML SYR IV ONE (08:35)
[2017-04-07] MEDS ORDERED: ePHEDrine/NS 25 MG/5 ML SYR IV ONE (08:35)
[2017-04-07] MEDS ORDERED: LACTATED RINGER'S 1000 ML INJ 1,000 ML IV ONE (08:36)
[2017-04-07] MEDS ORDERED: ONDANSETRON HCL 4 MG/2 ML VIAL IV PUSH ONE (08:36)
[2017-04-07] MEDS ORDERED: ALPRAZolam 0.25 MG TAB PO PRN (08:45)
[2017-04-07] MEDS ORDERED: NON-FORMULARY DRUG (Omeprazole Magnesium (Prilosec) 1 TAB) PO PRN (08:45)
[2017-04-07] MEDS ORDERED: METHOCARBAMOL 500 MG TAB PO PRN (08:45)
--- NOTE | 2017-04-07 08:50 | PD.OP ---
cc: Leland Martin MD Operative Report Date of Surgery: Apr 07, 2017 Preoperative Diagnosis: Left hip severe osteoarthritis Postoperative Diagnosis: Same Procedure: Left total hip arthroplasty Anesthesia: Gen. Surgeon: Leland Martin Lock Tender(s): RONALDO Gale The surgical procedure was assisted by my Advanced Registered Nurse Practitioner. My SECURED ENTRANCE MONITOR presence was necessary throughout this case for the manipulation and positioning of the surgical extremity. My SECURED ENTRANCE MONITOR was assisting me throughout the duration of this procedure. The skill set of an Advance Registered Nurse Practitioner was medically necessary to complete this procedure. During the surgical case, the director surgical was working at the back table and the Advance Registered Nurse Practitioner was directly assisting me. Operation and Findings: IMPLANT DESCRIPTION: 1. [place] Gription Cup, acetabular size 52. 2. [place] AltrX polyethylene, neutral. 4. [place] femoral stem size 12, no collar, standard offset. 5. Femoral head/neck ceramic, 36, +5. ESTIMATED BLOOD LOSS: 300 cc. JUSTIFICATION FOR PROCEDURE: The patient has end-stage osteoarthritis to the hip. There is an attached conservative measures pathway form in the chart that describes the nonoperative measures that were undertaken prior to consideration of surgical management. The patient understood the risks and benefits of surgical management. See my office notes for further details. PROCEDURE: The patient was brought back to the operative theatre. Adequate anesthesia was obtained. The patient received intravenous vancomycin and Ancef. The patient was carefully placed on the operative table. The lower extremity was prepped and draped in the usual sterile fashion. Fluoroscopic images were obtained. We made a standard anterior incision over the hip. We dissected through the TFL fascia, exposing the anterior capsule. Arthrotomy was performed in a T-shaped fashion. The capsule was tagged with a #2 FiberWire. End-stage arthritis was identified. Osteotomy was performed through the femoral neck exposing the acetabulum. Remnants of the labrum were resected and osteophytes were removed. We sequentially reamed the acetabulum. We trialed the hip and placed the final cup into position. This was done under fluoroscopic guidance to obtain the appropriate inclination and anteversion. A manhole cover was placed into the acetabular component. We then placed the final polyethylene into position and confirmed that it was well seated. Capsular attachments on the calcar and the inner aspect of the greater trochanter were resected. On the proximal aspect of the femur we used a rongeur , box osteotome, canal finder, sequential broaches and lateralizing rasp. We calcar planed the proximal femur. Then thoroughly irrigated the wound. We trialed the hip with the appropriate size stem. We placed the final stem in to position and trialed again. The hip was stable while it was externally rotated 70 degrees when the leg was lowered to the floor. The final head was applied, and final fluoroscopic images were obtained. The wound was thoroughly irrigated again. Interarticular injection of liposomal bupivacaine was given. The capsule was closed with #2 FiberWire and #1 Vicryl. The deep fascia was closed with a #2 Stratafix, followed by 2-0 Vicryl in the skin and marisela. Postop plan is to weight-bear as tolerated. DVT prophylaxis will be performed with Waylon, YADIRA haile, early mobilization, and Lovenox followed by aspirin. Leland Martin MD Apr 07, 2017 08:50
[2017-04-07] MEDS ORDERED: ENOX40P SQ (08:52)
[2017-04-07] MEDS ORDERED: ASPI325T PO (08:52)
[2017-04-07] MEDS ORDERED: PERC5TAB12 PO (08:52)
[2017-04-07] MEDS ORDERED: SODIUM CHLORIDE 0.9% FLUSH 5 ML FLUSH IVF PRN (09:00)
[2017-04-07] MEDS ORDERED: MORPHINE SULFATE 4 MG/ML INJ IV PUSH PRN (09:00)
[2017-04-07] MEDS ORDERED: Post-op Orders (for Pharmacy) MISC XX ONE (09:00)
[2017-04-07] MEDS ORDERED: diphenhydrAMINE HCL 50 MG/ML VIAL IV PRN (09:00)
[2017-04-07] MEDS ORDERED: oxyCODONE/ACETAMINOPHEN 5 MG/325 MG TAB PO PRN (09:00)
[2017-04-07] MEDS ORDERED: ALUMINUM/MAGNESIUM/SIMETH 30 ML CUP PO PRN (09:00)
[2017-04-07] MEDS ORDERED: NALOXONE HCL 0.4 MG/ML AMP IV PRN (09:00)
[2017-04-07] MEDS ORDERED: MAGNESIUM HYDROXIDE SUSP 30 ML CUP PO PRN (09:00)
[2017-04-07] MEDS ORDERED: ONDANSETRON HCL 4 MG/2 ML VIAL IVP PRN (09:00)
[2017-04-07] MEDS ORDERED: BISACODYL 10 MG SUPP RECTAL PRN (09:00)
[2017-04-07] MEDS: SODIUM CHLORIDE 0.9% FLUSH 5 ML FLUSH IVF SCH ×2 (09:00→21:23)
[2017-04-07] MEDS ORDERED: DO NOT ADM ANY ANTICOAGULANT DRUGS PRN (09:22)
[2017-04-07] MEDS ORDERED: fentaNYL CITRATE 250 MCG/5 ML AMP ONE (09:28)
[2017-04-07] MEDS: SODIUM CHLOR 0.9% 1000 ML INJ 1,000 ML IV SCH ×2 (09:50→22:50)
--- NOTE | 2017-04-07 09:56 | RADRPT ---
EXAM DATE/TIME: 04/07/2017 09:26 [place] COMPARISON: No previous studies available for comparison. INDICATIONS : Post op left hip replacement. MEDICAL HISTORY : None. SURGICAL HISTORY : None. ENCOUNTER: Initial ACUITY: 1 day PAIN SCORE: Non-responsive. LOCATION: Left hip. FINDINGS: Status post left hip arthroplasty. Arthroplasty components are in anatomic alignment. No significant acute bony fracture. Lower lumbar spine fixation hardware. Immediate postsurgical features noted in t he soft tissues with surgical staple line. CONCLUSION: 1. Status post left hip arthroplasty in normal anatomic alignment without significant acute bony frac ture. Anand Simons MD on April 07, 2017 at 9:53 Board Certified Radiologist. This report was verified electronically.
[2017-04-07] MEDS ORDERED: *morphine SULFATE 8 MG/ML PERIprocedure ONLY ONE (10:01)
[2017-04-07] MEDS: GABAPENTIN 300 MG CAP PO SCH ×3 (12:02→18:05)
[2017-04-07] MEDS ORDERED: JARDIANCE 10 MG PO SCH (15:00)
[2017-04-07] MEDS: oxyCODONE/ACETAMINOPHEN 5 MG/325 MG TAB PO PRN ×2 (16:30→21:26)
[2017-04-07 17:20] VITALS: BP 110/74; PULSE 112; RESP 16; TEMP 97.5; O2SAT 97
[2017-04-07 20:18] VITALS: BP 113/73; PULSE 112; RESP 19; TEMP 98.5; O2SAT 95
[2017-04-07] MEDS ORDERED: DULoxetine HCl DR 60 MG CAP PO SCH (21:00)
[2017-04-07] MEDS ORDERED: ZOLPIDEM TARTRATE 10 MG TAB PO PRN (21:00)
[2017-04-07] MEDS ORDERED: PATIENT OWN MEDICATION: TRADJENTA 5MG TABLET PO SCH (21:00)
[2017-04-08 00:18] VITALS: BP 126/75; PULSE 112; RESP 18; TEMP 98.3; O2SAT 96
[2017-04-08 03:37] VITALS: BP 106/67; PULSE 123; RESP 18; TEMP 98; O2SAT 93
[2017-04-08 07:07] LABS: HEMATOCRIT 26.7 % (39.0-51.0); MEAN CELL VOLUME 77.8 FL (80.0-100.0); MEAN CORPUSCULAR HEMOGLOBIN 24.2 PG (27.0-34.0); MEAN CORPUSCULAR HGB CONC 31.2 % (32.0-36.0); PLATELET COUNT 183 TH/MM3 (150-450); RED BLOOD COUNT 3.43 MIL/MM3 (4.50-5.90); RED CELL DISTRIBUTION WIDTH 19.2 % (11.6-17.2); REVIEW FLAG FINAL; WHITE BLOOD COUNT 7.6 TH/MM3 (4.0-11.0)
[2017-04-08] MEDS ORDERED: DEXAMETHASONE SOD PHOS 20 MG/5 ML VIAL IV ONE (07:45)
[2017-04-08 08:00] VITALS: BP 147/79; PULSE 124; RESP 20; TEMP 98.6; O2SAT 98
[2017-04-08] MEDS ORDERED: ENOXAPARIN SODIUM 40 MG/0.4 ML SYRINGE SQ SCH (08:00)
[2017-04-08] MEDS: GABAPENTIN 300 MG CAP PO SCH ×2 (08:59→12:55)
[2017-04-08] MEDS: oxyCODONE/ACETAMINOPHEN 5 MG/325 MG TAB PO PRN ×2 (08:59→12:55)
[2017-04-08] MEDS: SODIUM CHLORIDE 0.9% FLUSH 5 ML FLUSH IVF SCH (08:59)
[2017-04-08] MEDS ORDERED: LOSARTAN 50 MG TAB PO SCH (09:00)
[2017-04-08] MEDS ORDERED: METOPROLOL TARTRATE 25 MG TAB PO SCH (09:00)
[2017-04-08] MEDS ORDERED: BENZOCAINE 6 MG/MENTHOL 10 MG LOZENGE BUCCAL PRN (10:45)
[2017-04-08 12:00] VITALS: BP 121/78; PULSE 91; RESP 18; TEMP 98.2; O2SAT 99
--- NOTE | 2017-04-08 12:11 | PD.ORT.PN ---
Subjective Post Op Day #: 1 Subjective Remarks The patient is OOB in chair with minimal pain to the left hip. Patient states he is ready for discharge home with home health today. Objective Vitals Vital Signs Date Time Temp Pulse Resp B/P Pulse Ox O2 Delivery O2 Flow Rate FiO2 04/08/17 08:00 98.6 124 20 147/79 98 04/08/17 07:25 Room Air 04/08/17 03:37 98.0 123 18 106/67 93 04/08/17 00:18 98.3 112 18 126/75 96 04/07/17 22:25 18 04/07/17 21:45 21 04/07/17 20:18 98.5 112 19 113/73 95 04/07/17 17:20 97.5 112 16 110/74 97 04/07/17 16:00 110 14 124/72 97 Room Air 04/07/17 14:00 105 14 131/76 99 Nasal Cannula 2 04/07/17 12:00 107 13 138/94 98 Nasal Cannula 2 I/O 04/07/17 04/07/17 04/07/17 04/08/17 04/08/17 04/08/17 06:59 14:59 22:59 06:59 14:59 22:59 Intake Total 2120 ml 942 ml 1269 ml Output Total 1075 ml 500 ml 1800 ml Balance 1045 ml 442 ml -531 ml Intake Oral 220 ml 360 ml 480 ml IV Total 100 ml 582 ml 789 ml Other 1800 ml Output Urine Total 725 ml 500 ml 1800 ml Estimated Blood Loss 350 ml # Voids 1 # Bowel Movements 0 0 Result Diagram: 04/08/17 0658 Procedures Left INESSA Objective Remarks Patient's dressing changed today with scant serosanguineous drainage. Incision is well approximated with surgical clips intact. No erythema or s/s of infection. Calf is soft and nontender. EHL/TA/G intact. + SILT. Assessment & Plan Ortho Post Op Day #: 1 Problem List: Assessment and Plan POD #1: Left INESSA 1. WBAT LLE 2. Lovenox followed by ASA for DVT prophylaxis 3. Ice to the left hip PRN 4. Stable for discharge home with home health today. Nicho Henson Apr 08, 2017 12:11
[2017-04-08] MEDS ORDERED: MULTIVITAMINS/MINERALS THERAPEUTIC TAB PO SCH (21:00)
[2017-04-08] MEDS ORDERED: DOCUSATE SODIUM 100 MG CAP PO SCH (21:00)
--- NOTE | 2017-04-09 16:36 | HHI.DS ---
Discharge Summary Admission Date Apr 07, 2017 at 05:05 Discharge Date: Apr 08, 2017 Admitting Diagnosis OA of the left hip Status post total hip replacement, left Diagnosis: (1) Osteoarthritis of left hip Diagnosis: Principal (2) Status post total hip replacement, left Diagnosis: Principal Procedures Left INESSA Brief History This is a 66 year old male patient with severe OA of the left hip CBC/BMP: 04/08/17 0658 Significant Findings Laboratory Tests Test 04/08/17 06:58 Red Blood Count 3.43 MIL/MM3 (4.50-5.90) Hemoglobin 8.3 GM/DL (13.0-17.0) Hematocrit 26.7 % (39.0-51.0) Mean Corpuscular Volume 77.8 FL (80.0-100.0) Mean Corpuscular Hemoglobin 24.2 PG (27.0-34.0) Mean Corpuscular Hemoglobin 31.2 % Concent (32.0-36.0) Red Cell Distribution Width 19.2 % (11.6-17.2) PE at Discharge Patient's dressing changed today with scant serosanguineous drainage. Incision is well approximated with surgical clips intact. No erythema or s/s of infection. Calf is soft and nontender. EHL/TA/G intact. + SILT. Hospital Course The patient was admitted to the hospital with severe OA of the left hip to have a left INESSA. The patient's surgery went well without complication. The patient is WBAT on the LLE. The patient is on a diabetic diet. The patient is on Lovenox followed by ASA for DVT prophylaxis. The patient was discharged home with home health and will f/u with Dr. Martin in 1-2 weeks as previously scheduled. Pt Condition on Discharge: Stable Discharge Disposition: Disch w/ Home Health Serv Discharge Instructions Diet Instructions: As Tolerated, No Restrictions, Diabetic Diet Activities You Can Perform: Weight Bearing as Kelle Activities to Avoid: Strenuous Activity Follow up Referrals: Orthopedics with Leland Martin MD SNF/[facility]/ with [facility] New Medications: Aspirin (Aspirin) 325 Mg Tab 325 MG PO DAILY Start Aspirin after Lovenox is completed. Prevent Blood Clot # 30 Ref 0 TAB Commode 3-in-1 (Commode 3-in-1) 1 Mis Mis 1 EA .ROUTE DIRECTED #1 Ref 0 EA Enoxaparin Inj (Lovenox Inj) 40 Mg/0.4 Ml Syr 40 MG SQ DAILY Start Aspirin after Lovenox is completed. Blood Clot Prevention # 10 Ref 0 SYRINGE Oxycodone-Acetaminophen (Percocet) 5-325 mg Tab 1-2 TAB PO Q4H PRN PAIN #60 Ref 0 TAB Walker with Front Wheels (Walker with Front Wheels) 1 Mis Mis 1 EA .ROUTE DIRECTED #1 Ref 0 EA Continued Medications: Alprazolam (Alprazolam) 0.25 Mg Tab 0.25 MG PO Q6H PRN ANXIETY #[address] Ref [address] (Dul[address]) 60 Mg Capdr 60 MG PO HS #30 Ref 0 CAP Empagliflozin (Jardiance) 10 Mg Tab 10 MG PO DAILY Blood Sugar Management #30 Ref 0 TAB Gabapentin (Neurontin) 300 Mg Cap 300 MG PO TID #60 Ref 0 CAP Linagliptin (Tradjenta) 5 Mg Tab 5 MG PO HS Blood Sugar Management #30 Ref 0 TAB Losartan (Losartan) 100 Mg Tab 100 MG PO DAILY Blood Pressure Management #30 Ref 0 TAB Methocarbamol (Methocarbamol) 750 Mg Tab 750 MG PO TID PRN muscle spasm #90 Ref 3 TAB Metoprolol Tartrate (Metoprolol Tartrate) 25 Mg Tab 25 MG PO DAILY #30 Ref 0 TAB Multivitamin (Men's Multi-Vitamin) 1 Each Tablet 1 TAB PO DAILY Nutritional Supplement Omeprazole Magnesium (Prilosec) 20 Mg Tab 1 TAB PO DAILY PRN hrt Zolpidem (Ambien) 10 Mg Tab 10 MG PO HS PRN INSOMNIA Ref 0 TAB Discontinued Medications: Meloxicam (Meloxicam) 15 Mg Tab 15 MG PO DAILY Arthritis Pain #30 Ref 1 TAB Tramadol (Ultram) 50 Mg Tab 50 MG PO Q8HR PRN pain #90 Ref 1 TAB Nicho Henson Apr 09, 2017 16:36
== END 2017-04-08 15:29 | disposition home health service (06) | DRG 470 ==
LOC: HSDI 04-07 05:05 → N06B 04-07 17:15
PROVIDERS: ADMIT Orthopaedic Surgery; ATTEND Orthopaedic Surgery
PROC: 0SRB04A Replacement of Left Hip Joint with Ceramic on Polyethylene Synthetic Substitute, Uncemented, Open Approach (ICD-10-PCS; principal; 2017-04-07 06:51)
DX: M16.12 Unilateral primary osteoarthritis, left hip (principal); R56.9 Unspecified convulsions; J44.9 Chronic obstructive pulmonary disease, unspecified; G62.9 Polyneuropathy, unspecified; I10 Essential (primary) hypertension; E78.5 Hyperlipidemia, unspecified; I25.10 Atherosclerotic heart disease of native coronary artery without angina pectoris; E11.9 Type 2 diabetes mellitus without complications; Z79.84 Long term (current) use of oral hypoglycemic drugs; M54.9 Dorsalgia, unspecified; M54.2 Cervicalgia; K21.9 Gastro-esophageal reflux disease without esophagitis; Z85.46 Personal history of malignant neoplasm of prostate; F32.9 Major depressive disorder, single episode, unspecified
CPT/HCPCS: 73502; 76000; 82948; 85027; 86850; 86900; 86901; 94150; C1776; C9290; J0690; J1100; J1580; J1650; J2250; J2270; J2370; J2405; J3010; J3370; J7030; J7050; J7120

== ENCOUNTER → 2017-03-26 | Outpatient (CLI) | payer MEDICARE ==
[~2017-03-26] MED LIST changes: +ASPI325T PO; +COMMODE 3-IN-11 MIS; +ENOX40P SQ; +MULT-267 PO; +PERC5TAB12 PO; +PRIL20TA2 PO
[2017-03-26 10:08] LABS: AUTOMATED NEUTROPHIL # 1.7 TH/MM3 (1.8-7.7); BASOPHIL % 0.9 % (0.0-2.0); EOSINOPHIL # 0.1 TH/MM3 (0-0.4); EOSINOPHIL % 2.8 % (0.0-4.0); HEMATOCRIT 32.9 % (39.0-51.0); HEMO FLAGS DIFF FINAL; LYMPH % 33.3 % (9.0-44.0); LYMPHOCYTE # 1.1 TH/MM3 (1.0-4.8); MEAN CELL VOLUME 83.7 FL (80.0-100.0); MEAN CORPUSCULAR HGB CONC 32.3 % (32.0-36.0); MONO % 13.8 % (0.0-8.0); NEUT % 49.2 % (16.0-70.0); PLATELET COUNT 213 TH/MM3 (150-450); RED BLOOD COUNT 3.93 MIL/MM3 (4.50-5.90); RED CELL DISTRIBUTION WIDTH 18.4 % (11.6-17.2); WHITE BLOOD COUNT 3.4 TH/MM3 (4.0-11.0)
[2017-03-26 10:14] LABS: BLOOD, URINE NEG (NEG); GLUCOSE,URINE 1000 mg/dL (NEG); KETONE, URINE NEG (NEG); NITRITE,URINE NEG (NEG); PH, URINE 5.5 (5.0-8.5); URINE COLOR YELLOW (YELLW/STRAW)
[2017-03-26 10:15] LABS: COMMENT (UR) CULT NOT INDICATED; CULTURE IF INDICATED CULT NOT INDICATED
[2017-03-26 10:18] LABS: APTT (PATIENT) 27.8 SEC (24.3-30.1); INTERNATIONAL NORMALIZED RATIO 0.9 RATIO; PROTHROMBIN TIME - PATIENT 10.1 SEC (9.8-11.6)
[2017-03-26 10:23] LABS: WESTERGREN SEDIMENTATION RATE 43 mm/hr (0-20)
[2017-03-26 10:28] LABS: ANION GAP 6 MEQ/L (5-15); AST (GOT) 21 U/L (15-37); BLOOD UREA NITROGEN 15 MG/DL (7-18); CHLORIDE 105 MEQ/L (98-107); GLOMERULAR FILTRATION RATE 63 ML/MIN (>89); GLUCOSE,FASTING 130 MG/DL (74-99); SODIUM (NA) 139 MEQ/L (136-145)
[2017-03-26 10:29] LABS: ALT (GPT) 26 U/L (12-78)
[2017-03-26 10:31] LABS: ALKALINE PHOSPHATASE 114 U/L (45-117); TOTAL BILIRUBIN ADULT 0.5 MG/DL (0.2-1.0)
--- NOTE | 2017-03-26 10:48 | RADRPT ---
EXAM DATE/TIME: 03/26/2017 10:12 [place] COMPARISON: No previous studies available for comparison. INDICATIONS : Evaluate for penumonia, pneumothorax, or communicable disease. Pre op for total hip replacement. MEDICAL HISTORY : Hypercholesterolemia. Lupus. Chronic obstructive pulmonary disease. Seizures. CAD. A-fib. Hyperte nsion. Pulmonary fibrosis. Ulcer. Hiatial hernia. Prostate CA. Radiation therapy. Osteoarthritis. Landy betes. SURGICAL HISTORY : Appendectomy. Fusion, cervical. Fusion, lumbar. Left finger. ENCOUNTER: Initial ACUITY: 1 day PAIN SCORE: 0/10 LOCATION: chest FINDINGS: PA and lateral views of the chest demonstrate the lungs to be symmetrically aerated without evidence of mass, infiltrate or effusion. The cardiomediastinal contours are unremarkable. Osseous structure s are intact. Partial visualization of lower cervical and lumbar fixation hardware. CONCLUSION: 1. No acute cardiopulmonary disease. Anand Simons MD on March 26, 2017 at 10:46 Board Certified Radiologist. This report was verified electronically.
--- NOTE | 2017-03-26 13:31 | EKG ---
Date Performed: 03/26/2017 Time Performed: 09:33:02 PTAGE: 66 years EKG: Sinus rhythm NORMAL ECG PREVIOUS TRACING 06/30/2011 23.08.54 Compared to the prior study of 06/30/2011, nonspecific ST -T changes have resolved. DOCTOR: Musa Muniz Interpretating Date/Time 03/26/2017 13:26:59
== END ==
LOC: CPRE 08:46
PROVIDERS: ATTEND Orthopaedic Surgery
DX: Z01.810 Encounter for preprocedural cardiovascular examination (principal); Z01.811 Encounter for preprocedural respiratory examination; Z01.812 Encounter for preprocedural laboratory examination; Z96.60 Presence of unspecified orthopedic joint implant; M79.609 Pain in unspecified limb; M25.50 Pain in unspecified joint; M16.12 Unilateral primary osteoarthritis, left hip
CPT/HCPCS: 36415; 71020; 80053; 81001; 85025; 85610; 85652; 85730; 93005